=== PATIENT | male | born 1975 | race Caucasian/White ===

== ENCOUNTER → 2016-06-16 | Outpatient (CLI) | payer MEDICAID ==
[~2016-06-16] MED LIST: ACETAMINOPHEN PO; METHADONE PO
--- NOTE | ~2016-06-16 | CR252 ---
[facility]. [facility] A Service of [facility] RADIOLOGY TEXT RESULTS PATIENT: BROWN OLSON LOCATION: [facility] : [birth year] UNIT #: [id number] AGE: [address]: Marybeth GuzmanP SEX: M ORDER DR: [id number] [place] [id number] O MR#: [id number] Acc #: [id number] NAME: BRONW OLSON : 1975 SEX: M STUDY DATE/TIME: 06/16/2016 10:47 UNIT: [facility] ROOM: STUDY DESCRIPTION: CR Tibia and Fibula 2 Views Lt Attending Physician: Marybeth Guzman A.P.R.N. Referring Physician: Marybeth Guzman A.P.R.N. Ordering Physician: Marybeth Guzman A.P.R.N. Primary Care Physician: Marybeth Guzman A.P.R.N. MEDICAL IMAGING REPORT This report is preliminary unless electronic signature is present. EXAM Left tibia and fibula 2 views 06/16/2016 HISTORY Left lower leg pain anterior mid shaft for 3 months with no known injury. FINDINGS There is no evidence of fracture, dislocation, or radiopaque foreign body. IMPRESSION Normal tibia and fibula. Dictated by... Amado Maldonado M.D. THIS IS AN ELECTRONICALLY VERIFIED REPORT Amado Maldonado M.D. at 06/17/2016 9:02 AM TONY/sosa TD: 06/16/2016 16:17 JOB #: [id number] MEDICAL IMAGING REPORT Page 1 of 1
== END | disposition home or self-care (01) ==
LOC: SRAD 10:05
DX: M79.662 Pain in left lower leg (principal)
CPT/HCPCS: 73590

== ENCOUNTER → 2016-09-12 | Day surgery (SDC) | payer MEDICAID ==
--- NOTE | ~2016-09-12 | OR ---
Unit #: [id number] #: [id number] Patient: BROWN OLSON [id number] [address] [place], [place] [address] [id number] MR#: [id number] NAME: BROWN OLSON. ROOM: Date of Procedure: 09/12/2016 Admission Date: 09/12/2016 Surgeon: Xavier Dumont M.D. : 1975 Attending Physician: Xavier Dumont M.D. Primary Care Physician: Marybeth Guzman A.P.R.N. OPERATIVE REPORT PROCEDURE PERFORMED Colonoscopy to cecum. INDICATIONS FOR PROCEDURE A 41-year-old gentleman with Hemoccult-positive stool and anemia, undergoing evaluation with upper endoscopy and colonoscopy. MEDICATIONS Monitored anesthesia. POSTOPERATIVE FINDINGS 1. Normal colon exam to cecum. Prep was good. 2. Small hemorrhoids. PLAN Check CBC and iron levels. If anemic, consider EGD for further evaluation. DESCRIPTION OF PROCEDURE The patient was explained of the procedure, risks, and benefits along with risks and benefits of anesthesia. He was brought to the endoscopy room. Rectal exam was done, which was normal. Colonoscope was lubricated, passed up the rectum, advanced under direct vision all the way to the cecum. Cecum was identified by ileocecal valve and appendiceal orifice. Terminal ileum was intubated, shows normal mucosa. Colonic mucosa was normal throughout. I retroflexed in the rectum, small hemorrhoids seen. Scope was gently pulled out. He tolerated it well. Dictated by... Gutierrez De La Vega/kiya TD: 09/12/2016 14:49 JOB #: [id number] CC: Rocio Arreola M.D. Unit #: [id number] #: [id number] Patient: BROWN OLSON OPERATIVE REPORT Page 1 of 1 X Xavier Dumont MD X PROCEDURE OPERATIVE NOTE
[2016-09-12 10:37] LABS: BASOPHIL# 0.1 X10e3 (0-0.3); BASOPHIL% 0.8 % (0-2.5); EOSINOPHIL# 0.1 X10e3 (0-0.7); EOSINOPHIL% 0.8 % (0.0-7.0); HEMATOCRIT 34.9 % (38.0-50.0); HEMOGLOBIN 11.6 gm/dL (13.0-16.0); LYMPHOCYTE# 2.1 X10e3 (1.0-3.5); MEAN CELL VOLUME 82.4 FL (83-96); MEAN CORPUSCULAR HEMOGLOBIN 27.3 PG (28-34); MEAN CORPUSCULAR HGB CONC 33.1 g/dL (30-36); MEAN PLATELET VOLUME 7.4 FL (6.5-11.5); MONOCYTE# 0.4 X10e3 (0-1.0); NEUTROPHIL# 4.9 X10e3 (1.5-7.1); NEUTROPHIL% 65.4 % (40-75); PLATELET COUNT 268 X10e3 (140-420); RED BLOOD COUNT 4.23 X10e (3.90-5.60); RED CELL DISTRIBUTION WIDTH 13.2 % (11.0-15.5); WHITE BLOOD COUNT 7.4 X10e3 (4.0-10.5)
[2016-09-12 10:38] LABS: DIFF IND NO
== END | disposition home or self-care (01) ==
LOC: COPS 08-05 09:00
PROVIDERS: Internal Medicine
DX: K64.9 Unspecified hemorrhoids (principal); D64.9 Anemia, unspecified; R19.5 Other fecal abnormalities; Z98.890 Other specified postprocedural states; Z79.891 Long term (current) use of opiate analgesic
CPT/HCPCS: 82728; 83540; 84466; 85025; J2250